=== PATIENT | male | born 1990 | race Caucasian/White ===

== ENCOUNTER 2019-08-04 09:28 | Emergency (ER) | payer OTHER ==
[2019-08-04] MEDS ORDERED: ONDANSETRON 4 MG/2 ML VIAL IVP STA (10:17)
[2019-08-04] MEDS ORDERED: SODIUM CHLORIDE 0.9% 1,000 ML IV ONE (10:20)
[2019-08-04] MEDS ORDERED: ACETAMINOPHEN TAB 500 MG TAB PO STA (10:23)
--- NOTE | 2019-08-04 10:23 | ED ---
General Adult HPI - General Chief complaint: Nausea/Vomiting/Diarrhea Stated complaint: vomiting/ear pain Time Seen by Provider: 08/04/19 09:50 Source: patient, RN notes reviewed, old records reviewed Mode of arrival: ambulatory Limitations: no limitations - History of Present Illness Initial comments: This is a 28-year-old male who presents emergency Department complaining of vomiting since Sunday. Patient states been unable to keep anything down. Patient states also had diarrhea over the same time frame. Patient also states she's developed a dry cough but no shortness of breath or difficulty breathing. Patient states she's also little low-grade fever. Patient complains of bilateral ear pain. Patient denies any sore throat. Patient is any facial tenderness. Patient denies any neck pain or stiffness. Patient denies any abdominal pain. Patient states he was diagnosed with influenza about a week ago. - Related Data Previous Rx's Medication Instructions Recorded Cyclobenzaprine [Flexeril] 10 mg PO TID PRN #15 tab 09/09/15 Ibuprofen [Motrin] 600 mg PO Q8HR PRN #30 tab 09/09/15 Amoxicillin 500 mg PO Q8H #30 capsule 08/04/19 Ondansetron [Zofran ODT] 4 mg PO Q8HR #10 tab 08/04/19 Allergies Allergy/AdvReac Type Severity Reaction Status Date / Time No Known Allergies Allergy Verified 09/09/15 08:01 Review of Systems ROS Statement: Those systems with pertinent positive or pertinent negative responses have been documented in the HPI. ROS Other: All systems not noted in ROS Statement are negative. Past Medical History Past Medical History: No Reported History History of Any Multi-Drug Resistant Organisms: None Reported Past Surgical History: Orthopedic Surgery Past Psychological History: No Psychological Hx Reported Smoking Status: Current some day smoker Past Alcohol Use History: Rare Past Drug Use History: Marijuana General Exam - General Exam Comments Initial Comments: GENERAL: Patient is well-developed and well-nourished. Patient is nontoxic and well- hydrated and is in mild distress. ENT: Neck is soft and supple. No significant lymphadenopathy is noted. Oropharynx is clear. Moist mucous membranes. Neck has full range of motion without eliciting any pain. Patient has a bulging left tympanic membrane. Membranes also very erythematous EYES: The sclera were anicteric and conjunctiva were pink and moist. Extraocular movements were intact and pupils were equal round and reactive to light. Eyelids were unremarkable. PULMONARY: Unlabored respirations. Good breath sounds bilaterally. No audible rales rhonchi or wheezing was noted. CARDIOVASCULAR: There is a regular rate and rhythm without any murmurs gallops or rubs. ABDOMEN: Soft and nontender with normal bowel sounds. SKIN: Skin is clear with no lesions or rashes and otherwise unremarkable. NEUROLOGIC: Patient is alert and oriented x3. Cranial nerves II through XII are grossly intact. Motor and sensory are also intact. Normal speech, volume and content. Symmetrical smile. MUSCULOSKELETAL: Normal extremities with adequate strength and full range of motion. No lower extremity swelling or edema. No calf tenderness. LYMPHATICS: No significant lymphadenopathy is noted PSYCHIATRIC: Normal psychiatric evaluation. Limitations: no limitations Course Vital Signs 08/04/19 09:51 Temperature 100.1 F H Pulse Rate 120 H Respiratory 19 Rate Blood Pressure 115/83 O2 Sat by Pulse 95 Oximetry Medical Decision Making - Medical Decision Making Chest x-ray shows no acute abnormality. - Lab Data Result diagrams: 08/04/19 10:17 08/04/19 10:17 Lab Results 08/04/19 08/04/19 Range/Units 10:17 10:17 WBC 10.5 (3.8-10.6) k/uL RBC 5.03 (4.30-5.90) m/uL Hgb 14.5 (13.0-17.5) gm/dL Hct 44.1 (39.0-53.0) % MCV 87.7 (80.0-100.0) fL MCH 28.9 (25.0-35.0) pg MCHC 32.9 (31.0-37.0) g/dL RDW 12.5 (11.5-15.5) % Plt Count 160 (150-450) k/uL Neutrophils % 79 % Lymphocytes % 11 % Monocytes % 6 % Eosinophils % 0 % Basophils % 2 % Neutrophils # 8.3 H (1.3-7.7) k/uL Lymphocytes # 1.2 (1.0-4.8) k/uL Monocytes # 0.6 (0-1.0) k/uL Eosinophils # 0.0 (0-0.7) k/uL Basophils # 0.2 (0-0.2) k/uL Sodium 140 (137-145) mmol/L Potassium 4.0 (3.5-5.1) mmol/L Chloride 105 (98-107) mmol/L Carbon Dioxide 26 (22-30) mmol/L Anion Gap 9 mmol/L BUN 10 (9-20) mg/dL Creatinine 1.04 (0.66-1.25) mg/dL Est GFR (CKD-EPI)AfAm >90 (>60 ml/min/1.73 sqM) Est GFR (CKD-EPI)NonAf >90 (>60 ml/min/1.73 sqM) Glucose 106 H (74-99) mg/dL Calcium 8.8 (8.4-10.2) mg/dL Total Bilirubin 0.7 (0.2-1.3) mg/dL AST 30 (17-59) U/L ALT 24 (4-49) U/L Alkaline Phosphatase 77 (38-126) U/L Total Protein 7.2 (6.3-8.2) g/dL Albumin 4.2 (3.5-5.0) g/dL Disposition Clinical Impression: Otitis media, Gastroenteritis Disposition: HOME SELF-CARE Instructions (If sedation given, give patient instructions): Gastroenteritis (ED), Ear Infection (ED) Prescriptions: Amoxicillin 500 mg PO Q8H #30 capsule Ondansetron [Zofran ODT] 4 mg PO Q8HR #10 tab Is patient prescribed a controlled substance at d/c from ED?: No Referrals: None,Stated [Primary Care Provider] - 1-2 days Time of Disposition: 11:15
[2019-08-04 10:37] LABS: Basophils # (A) 0.2 k/uL (0-0.2); Basophils % (A) 2 %; Eosinophils % (A) 0 %; HCT 44.1 % (39.0-53.0); HGB 14.5 gm/dL (13.0-17.5); Lymphocytes # (A) 1.2 k/uL (1.0-4.8); Lymphocytes % (A) 11 %; MCH 28.9 pg (25.0-35.0); MCHC 32.9 g/dL (31.0-37.0); MCV 87.7 fL (80.0-100.0); Mean Platelet Volume 7.5; Monocytes # (A) 0.6 k/uL (0-1.0); Monocytes % (A) 6 %; Neutrophils # (A) 8.3 k/uL (1.3-7.7); Neutrophils % (A) 79 %; Platelet Count 160 k/uL (150-450); RBC 5.03 m/uL (4.30-5.90); RDW 12.5 % (11.5-15.5); WBC 10.5 k/uL (3.8-10.6)
--- NOTE | 2019-08-04 10:39 | XR ---
EXAMINATION TYPE: XR chest 2V DATE OF EXAM: 08/04/2019 COMPARISON: NONE HISTORY: Chest pain TECHNIQUE: Frontal and lateral views of the chest are obtained. FINDINGS: There is no focal air space opacity. No evidence for pneumothorax. No pleural effusion. The cardiac silhouette size is within normal limits. The osseous structures are grossly intact. IMPRESSION: 1. No acute cardiopulmonary process.
[2019-08-04 10:59] LABS: ALT 24 U/L (4-49); AST 30 U/L (17-59); African American GFR (CKD) >90 (>60 ml/min/1.73 sqM); Albumin 4.2 g/dL (3.5-5.0); Alkaline Phosphatase 77 U/L (38-126); Anion Gap 9 mmol/L; Blood Urea Nitrogen 10 mg/dL (9-20); Calcium 8.8 mg/dL (8.4-10.2); Carbon Dioxide 26 mmol/L (22-30); Chloride 105 mmol/L (98-107); Glucose 106 mg/dL (74-99); Non-African American GFR(CKD) >90 (>60 ml/min/1.73 sqM); Sodium 140 mmol/L (137-145); Total Bilirubin 0.7 mg/dL (0.2-1.3); Total Protein 7.2 g/dL (6.3-8.2)
[2019-08-04 11:32] VITALS: BP 119/79; PULSE 98; RESP 18; TEMP 99.3
== END 2019-08-04 11:32 | disposition home or self-care (01) ==
LOC: EC 09:28
DX: K52.9 Noninfective gastroenteritis and colitis, unspecified (principal); H66.93 Otitis media, unspecified, bilateral; R05 Cough; F17.200 Nicotine dependence, unspecified, uncomplicated
CPT/HCPCS: 36415; 80053; 85025; 71046; 99284; 96374; 96361; J2405

== ENCOUNTER 2020-02-15 00:52 | Emergency (ER) | payer OTHER ==
[2020-02-15 01:08] VITALS: BP 125/79; PULSE 91; RESP 18; TEMP 99.1
[2020-02-15] MEDS ORDERED: ACET/COD 300 MG/30 MG STARTER PACK 6 TAB BTL PO STA (01:20)
[2020-02-15] MEDS ORDERED: KETOROLAC 15 MG/ML 1 ML VIAL IM STA (01:20)
--- NOTE | 2020-02-15 01:37 | XR ---
EXAMINATION TYPE: XR ankle complete LT DATE OF EXAM: 02/15/2020 COMPARISON: NONE HISTORY: Pain TECHNIQUE: 3 views FINDINGS: Ankle mortise is anatomic. I see no fracture nor dislocation. Joint spaces are normal. IMPRESSION: Negative left ankle exam.
--- NOTE | 2020-02-15 01:38 | XR ---
EXAMINATION TYPE: XR foot complete LT DATE OF EXAM: 02/15/2020 COMPARISON: NONE HISTORY: Pain TECHNIQUE: 3 views FINDINGS: Metatarsals appear intact. I see no fracture nor dislocation. Joint spaces are normal. Ther e are no erosions. Soft tissues appear normal. IMPRESSION: Negative left foot exam.
--- NOTE | 2020-02-15 01:42 | ED ---
Lower Extremity Injury HPI - General Chief Complaint: Extremity Injury, Lower Stated Complaint: Left ankle injury Time Seen by Provider: 02/15/20 01:09 Source: patient Mode of arrival: wheelchair Limitations: no limitations - History of Present Illness Initial Comments: 29-year-old male patient presents to the emergency department today for evaluation of left ankle and foot pain. Patient states that he was playing football earlier with his friends. Patient states he went home 4 hours later was resting when he stood back up he is having pain to the left ankle and foot. Patient denies any known injury. Denies fever or chills. Denies any redness around the joint. Patient has had for fracture on that side before. Denies any other injuries or concerns. Patient denies any headache, neck pain, back pain, chest pain, shortness of breath, dizziness, weakness, abdominal pain, nausea, vomiting, or difficulties with bowel movements or urination. - Related Data Previous Rx's Medication Instructions Recorded Cyclobenzaprine [Flexeril] 10 mg PO TID PRN #15 tab 09/09/15 Ibuprofen [Motrin] 600 mg PO Q8HR PRN #30 tab 09/09/15 Amoxicillin 500 mg PO Q8H #30 capsule 08/04/19 Ondansetron [Zofran ODT] 4 mg PO Q8HR #10 tab 08/04/19 Ibuprofen [Motrin] 600 mg PO Q8HR PRN #30 tab 02/15/20 Allergies Allergy/AdvReac Type Severity Reaction Status Date / Time chocolate flavor Allergy Rash/Hives Verified 02/15/20 01:08 Review of Systems ROS Statement: Those systems with pertinent positive or pertinent negative responses have been documented in the HPI. ROS Other: All systems not noted in ROS Statement are negative. Past Medical History Past Medical History: No Reported History History of Any Multi-Drug Resistant Organisms: None Reported Past Surgical History: Orthopedic Surgery Past Psychological History: No Psychological Hx Reported Smoking Status: Never smoker Past Alcohol Use History: Rare Past Drug Use History: Marijuana General Exam Limitations: no limitations General appearance: alert, in no apparent distress, other (This is a well- developed, well-nourished adult male patient in no acute distress. Vital signs upon presentation are temperature 99.1F, pulse 91, respirations 18, blood pressure 125/79, pulse ox 97% on room air.) Respiratory exam: Present: normal lung sounds bilaterally. Absent: respiratory distress, wheezes, rales, rhonchi, stridor Cardiovascular Exam: Present: regular rate, normal rhythm, normal heart sounds. Absent: systolic murmur, diastolic murmur, rubs, gallop, clicks Extremities exam: Present: full ROM, tenderness (Bilateral malleolar tenderness), normal capillary refill, other (There is soft tissue swelling surro unding the left ankle. Skin is otherwise pink, warm, dry. Cap refills less than 3 seconds. Pedal and posttibial pulses are 2+ and equal bilaterally.). Absent: pedal edema, joint swelling, calf tenderness Neurological exam: Present: alert, oriented X3, CN II-XII intact Psychiatric exam: Present: normal affect, normal mood Skin exam: Present: warm, dry, intact, normal color. Absent: rash Course Vital Signs 02/15/20 01:06 Temperature 99.1 F Pulse Rate 91 Respiratory 18 Rate Blood Pressure 125/79 O2 Sat by Pulse 97 Oximetry Medical Decision Making - Medical Decision Making 29-year-old male patient presents to the emergency department today for evaluation of left ankle and foot pain. Physical examination did reveal bilateral malleolar tenderness. There is mild swelling surrounding the left ank le. No erythema overlying the joint. He is afebrile. X-ray was negative. We will treat for ankle sprain with anti-inflammatory and ankle stirrup splint. Discharge follow up with his primary care physician for recheck in 1-2 days. He is instructed to have repeat x-rays performed in 7-10 days if pain symptoms persist. Return parameters were discussed in detail. He verbalizes understanding and agrees with this plan. - Radiology Data Radiology results: report reviewed, image reviewed 3 views of the left foot are obtained. Report reviewed in its entirety. Impression by Dr. Magallon shows negative left foot exam. 3 views of the left ankle are obtained. Report is reviewed in its entirety. Impression by Dr. Magallon shows negative left ankle exam Disposition Clinical Impression: Left ankle sprain Disposition: HOME SELF-CARE Condition: Good Instructions (If sedation given, give patient instructions): Ankle Sprain (ED) Additional Instructions: Rest, ice, elevate the ankle. Wear splint as needed for comfort and support. Follow up with your primary care physician for recheck in 1-2 days. Return to the emergency department immediately for any new, worsening, or concerning symptoms. Prescriptions: Ibuprofen [Motrin] 600 mg PO Q8HR PRN #30 tab PRN Reason: Pain Is patient prescribed a controlled substance at d/c from ED?: No Referrals: Giovany Michelle MD [STAFF PHYSICIAN] - 1-2 days Time of Disposition: 01:41
== END 2020-02-15 02:07 | disposition home or self-care (01) ==
LOC: EC 00:52
DX: S93.402A Sprain of unspecified ligament of left ankle, initial encounter (principal); Z91.018 Allergy to other foods; X50.9XXA Other and unspecified overexertion or strenuous movements or postures, initial encounter; Y93.61 Activity, american tackle football
CPT/HCPCS: 73610; 73630; 96372; 99283; 29515; L4350; J1885

== ENCOUNTER 2021-02-21 19:11 | Emergency (ER) | payer OTHER ==
[2021-02-21 20:00] VITALS: BP 123/80; PULSE 70; RESP 16; TEMP 98.1
--- NOTE | 2021-02-21 21:09 | US ---
EXAMINATION TYPE: US scrotum with doppler. Grayscale and color Doppler Duplex imaging performed of estefani snyder scrotum. DATE OF EXAM: 02/21/2021 COMPARISON: NONE CLINICAL HISTORY: TESTICULAR PAIN. Testicular pain and swelling. EXAM MEASUREMENTS: TESTICLES: Right Testicle: 4.0 x 2.5 x 2.1 cm Left Testicle: 3.4 x 2.4 x 2.2 cm EPIDIDYMIS HEAD: Right Epididymis: 1.1 x 1.6 x 1.5 cm Left Epididymis: 0.9 x 0.8 x 1.4 cm -Epididymis appears to be heterogeneous bilaterally. Doppler performed to assess for testicular vascularity; bilateral color flow and waveforms are seen. Presence of hydroceles: Anechoic area seen lateral to right testicle: 1.9 x 1.4 x 0.4 cm. Anechoic a steven seen lateral to left testicle: 2.2 x 1.6 x 1.2 cm. Presence of varicoceles: Vessels measure up to 0.23 cm on the right. IMPRESSION: No testicular torsion or mass. Small bilateral hydroceles.
[2021-02-21] MEDS ORDERED: KETOROLAC 15 MG/ML 1 ML VIAL IM STA (21:34)
[2021-02-21 22:22] LABS: Appearance,Urine Clear (Clear); Bilirubin,Urine Negative (Negative); Blood,Urine Negative (Negative); Color,Urine Yellow; Glucose,Urine (UA) Negative (Negative); Ketones,Urine Negative (Negative); Leukocyte Esterase,Urine Negative (Negative); Nitrite,Urine Negative (Negative); Protein,Urine Negative (Negative); Specific Gravity,Urine 1.019 (1.001-1.035); Urobilinogen,Urine <2.0 mg/dL (<2.0)
--- NOTE | 2021-02-21 22:55 | ED ---
General Adult HPI - General Chief complaint: Urogenital Stated complaint: Testicular Pain Time Seen by Provider: 02/21/21 21:09 Source: patient Mode of arrival: ambulatory Limitations: no limitations - History of Present Illness Initial comments: 30-year-old male presents to the emergency room for right testicular pain. Patient states this started today after he got out of the shower. States it is a dull ache. States it feels swollen. Patient denies any dysuria. Denies fevers or chills. Denies any concern for STDs. Denies any abdominal pain or flank pain. Patient has no other complaints at this time including shortness of breath, chest pain, abdominal pain, nausea or vomiting, headache, or visual changes. - Related Data Previous Rx's Medication Instructions Recorded Cyclobenzaprine [Flexeril] 10 mg PO TID PRN #15 tab 09/09/15 Ibuprofen [Motrin] 600 mg PO Q8HR PRN #30 tab 09/09/15 Amoxicillin 500 mg PO Q8H #30 capsule 08/04/19 Ondansetron [Zofran ODT] 4 mg PO Q8HR #10 tab 08/04/19 Ibuprofen [Motrin] 600 mg PO Q8HR PRN #30 tab 02/15/20 Allergies Allergy/AdvReac Type Severity Reaction Status Date / Time chocolate flavor Allergy Rash/Hives Verified 02/21/21 22:58 Review of Systems ROS Statement: Those systems with pertinent positive or pertinent negative responses have been documented in the HPI. ROS Other: All systems not noted in ROS Statement are negative. Past Medical History Past Medical History: No Reported History History of Any Multi-Drug Resistant Organisms: None Reported Past Surgical History: Orthopedic Surgery Past Psychological History: No Psychological Hx Reported Smoking Status: Never smoker Past Alcohol Use History: Rare Past Drug Use History: Marijuana General Exam Limitations: no limitations General appearance: alert, in no apparent distress Head exam: Present: atraumatic Eye exam: Present: normal appearance, PERRL, EOMI ENT exam: Present: normal exam, mucous membranes moist Neck exam: Present: normal inspection, full ROM. Absent: tenderness Respiratory exam: Present: normal lung sounds bilaterally. Absent: respiratory distress, wheezes Cardiovascular Exam: Present: regular rate, normal rhythm, normal heart sounds GI/Abdominal exam: Present: soft, normal bowel sounds. Absent: distended, tenderness, guarding, rebound, rigid exam: Present: testicular tenderness (R sided testicular tenderness), other (Roxanna [place] present for exam). Absent: scrotal swelling (No swelling or erythema noted of the scrotum) Course Vital Signs 02/21/21 19:58 Temperature 98.1 F Pulse Rate 70 Respiratory 16 Rate Blood Pressure 123/80 O2 Sat by Pulse 98 Oximetry Medical Decision Making - Medical Decision Making Urinalysis unremarkable. STD testing pending. Ultrasound shows no testicular torsion or mass. There are small bilateral hydroceles noted as well as varicoceles. Doppler flow bilaterally Patient's pain improved with Toradol. At this time patient can be discharged home to follow-up with urology. He will return here for any worsening symptoms. - Lab Data Lab Results 02/21/21 Range/Units 21:48 Urine Color Yellow Urine Appearance Clear (Clear) Urine pH 6.0 (5.0-8.0) Ur Specific [place] 1.019 (1.001-1.035) Urine Protein Negative (Negative) Urine Glucose (UA) Negative (Negative) Urine Ketones Negative (Negative) Urine Blood Negative (Negative) Urine Nitrite Negative (Negative) Urine Bilirubin Negative (Negative) Urine Urobilinogen <2.0 (<2.0) mg/dL Ur Leukocyte Esterase Negative (Negative) Disposition Clinical Impression: Hydrocele, Varicocele Disposition: HOME SELF-CARE Condition: Good Instructions (If sedation given, give patient instructions): Testicle Pain (ED) Additional Instructions: Please take Motrin and Tylenol for pain. Wear tight fitting underwear. Follow up with urology. Return for any worsening symptoms. Is patient prescribed a controlled substance at d/c from ED?: No Referrals: Yosvany Whipple MD [STAFF PHYSICIAN] - 1-2 days Time of Disposition: 22:54
== END 2021-02-21 23:01 | disposition home or self-care (01) ==
LOC: EC 19:11
DX: N43.3 Hydrocele, unspecified (principal); I86.1 Scrotal varices; F12.90 Cannabis use, unspecified, uncomplicated
CPT/HCPCS: 99284; 96372; 81003; 87491; 87591; 93975; 76870; J1885

== ENCOUNTER → 2022-04-20 | Outpatient (CLI) | payer OTHER ==
--- NOTE | 2022-04-20 11:55 | US ---
EXAMINATION TYPE: US carotid duplex BILAT DATE OF EXAM: 04/20/2022 COMPARISON: NONE CLINICAL HISTORY: R55 Syncope. Syncope. TECHNIQUE: Carotid duplex ultrasound examination. Indirect Doppler criteria was utilized. FINDINGS: EXAM MEASUREMENTS: RIGHT: Peak Systolic Velocity (PSV) cm/sec ----- Right CCA: 114.3 ----- Right ICA: 88.8 ----- Right ECA: 79.8 ICA/CCA ratio: 0.8 RIGHT: End Diastole cm/sec ----- Right CCA: 27.6 ----- Right ICA: 25.4 ----- Right ECA: 23.7 LEFT: Peak Systolic Velocity (PSV) cm/sec ----- Left CCA: 84.2 ----- Left ICA: 87.5 ----- Left ECA: 72.9 ICA/CCA ratio: 1.0 LEFT: End Diastole cm/sec ----- Left CCA: 22.6 ----- Left ICA: 47.4 ----- Left ECA: 14.5 VERTEBRALS (direction of flow): Right Vertebral: Antegrade Left Vertebral: Antegrade Rhythm: Normal [employer]OMBST[employer] ERECTOR NOTES: Elevated velocity within left prox CCA. Hypoechoic area with hyperechoic center seen within the left neck: 2.2 x 1.3 x 0.9 cm. Grayscale images show no significant focal plaque at carotid bulb level bilaterally. Velocity measure ments and ratios in visualized portion of both internal carotid arteries is within normal limits. Pro minent but probable benign lymph node in the left neck noted towards the end of study IMPRESSION: No hemodynamically significant stenosis identified in either internal carotid artery Criteria for Assigning % of Stenosis / Diameter reduction (Estimation based on the indirect measurements of the internal carotid artery velocities (ICA PSV). 1. Normal (no stenosis)=ICA PSV < 125 cm/s: ratio < 2.0: ICA EDV<40 cm/s. 2. Less than 50% stenosis=ICA PSV < 125 cm/s: ratio < 2.0: ICA EDV<40 cm/s. 3. 50 to 69% stenosis=ICA PSV of 125 to 230 cm/s: ration 2.0 ? 4.0: ICA EDV 40-100 cm/s. 4. Greater than 70% stenosis to near occlusion= ICA PSV > 230 cm/s: ratio > 4.0: ICA EDV > 100 cm/s. 5. Near occlusion= ICA PSV velocities may be low or undetectable: variable ratio and ICA EDV. 6. Total occlusion=unable to detect flow.
== END | disposition home or self-care (01) ==
LOC: RADUSWWP 11:08
PROVIDERS: ATTEND Family Medicine
DX: R55 Syncope and collapse (principal)
CPT/HCPCS: 93880

== ENCOUNTER → 2022-04-27 | Outpatient (CLI) | payer OTHER ==
--- NOTE | 2022-04-27 16:30 | MR ---
EXAMINATION TYPE: MR brain wo/w con DATE OF EXAM: 04/27/2022 COMPARISON: NONE HISTORY: Pt passed out and hit his head on a desk and then the floor TECHNIQUE: Multiplanar, multisequence images of the brain and brainstem is performed without and with IV contras t, utilizing 11ml mL intravenous Gadavist . FINDINGS: Diffusion weighted images demonstrate no evidence of a recent infarct or other diffusion ab normality. There is no extra-axial fluid collection or significant white matter signal abnormality. The ventricular system and cisternal spaces are normal in size and appearance. The brain volume is age appropriate. T2 Star weighted images show no suspicious intraparenchymal blood product. Midline structures demonstrate normal morphology. The craniocervical junction appears within normal limits. Post contrast images demonstrate no abnormal enhancement. The dural venous sinuses appear pa tent. Mild to moderate mucosal thickening inferior maxillary sinuses bilaterally with slightly more p rominence on the left and additional 1.5 cm mucous retention cyst or polyp inferiorly on the left axi al image 1. The globes are intact bilaterally. Patchy fluid signal in the bilateral mastoid air cells with extension towards the left petrous apex noted. IMPRESSION: Possible bilateral mastoiditis, correlate clinically. Chronic inferior ethmoid sinus dis ease. No abnormal enhancement.
== END | disposition home or self-care (01) ==
LOC: RADMRIMAIN 12:44
PROVIDERS: ATTEND Family Medicine
DX: R55 Syncope and collapse (principal)
CPT/HCPCS: 70553; A9585

== ENCOUNTER 2023-06-26 11:13 | Emergency (ER) | payer BC, OTHER ==
--- NOTE | 2023-06-26 12:07 | ED ---
ENT HPI - General Source: patient, RN notes reviewed <Alea Ewing - Last Filed: 06/26/23 12:04> - General Source: patient, RN notes reviewed Limitations: no limitations <Lai Islas - Last Filed: 06/26/23 13:09> - General Stated complaint: L Face Swollen, Dental Pain Time Seen by Provider: 06/26/23 12:04 - History of Present Illness Initial comments: Patient is a 32-year-old male presented ER with chief complaint of left-sided dental pain for 3 days.. Patient states he had work done about a month ago. He recently felt a pop and had been having pain ever since. Patient denies any fevers, chills, night sweats. (Alea Ewing) Patient is a pleasant 32-year-old male presenting to the emergency Department with left-sided dental pain. Onset of symptoms was about 3 days ago. Patient is been having intermittent discomfort. Discomfort mild at this time. No fevers. No drainage. Patient has noticed some swelling in the left lower maxillary region. (Lai Islas) - Related Data Previous Rx's Medication Instructions Recorded Acetaminophen [Tylenol] 500 mg PO Q4-6H PRN #20 tab 02/21/21 Ibuprofen [Motrin] 600 mg PO Q6HR PRN #20 tab 02/21/21 Penicillin V Potassium [Pen Vee K] 500 mg PO QID #40 tablet 06/26/23 Allergies Allergy/AdvReac Type Severity Reaction Status Date / Time chocolate flavor Allergy Rash/Hives Verified 06/26/23 12:28 Review of Systems ROS Other: All systems not noted in ROS Statement are negative. <Alea Ewing - Last Filed: 06/26/23 12:04> ROS Other: All systems not noted in ROS Statement are negative. Constitutional: Denies: fever Eyes: Denies: eye pain ENT: Reports: as per HPI, dental pain Respiratory: Denies: cough Cardiovascular: Denies: chest pain Gastrointestinal: Denies: abdominal pain <Lai Islas - Last Filed: 06/26/23 13:09> ROS Statement: Those systems with pertinent positive or pertinent negative responses have been documented in the HPI. Past Medical History Past Medical History: No Reported History History of Any Multi-Drug Resistant Organisms: None Reported Past Surgical History: Orthopedic Surgery Past Psychological History: No Psychological Hx Reported Smoking Status: Never smoker Past Alcohol Use History: Rare Past Drug Use History: Marijuana <Alea Ewing - Last Filed: 06/26/23 12:04> General Exam <Alea Ewing - Last Filed: 06/26/23 12:04> Limitations: no limitations General appearance: alert, in no apparent distress Head exam: Present: normocephalic Eye exam: Present: normal appearance, PERRL, EOMI ENT exam: Present: other (Patient does have some mild tenderness left maxillary dentition near the first premolar. No significant swelling or drainable visible abscess. Minimal left maxillary swelling externally.) Neck exam: Present: normal inspection Respiratory exam: Present: normal lung sounds bilaterally Cardiovascular Exam: Present: regular rate, normal rhythm GI/Abdominal exam: Present: soft. Absent: tenderness Extremities exam: Present: normal inspection Neurological exam: Present: alert Psychiatric exam: Present: normal affect, normal mood Skin exam: Present: normal color <Lai Islas - Last Filed: 06/26/23 13:09> - General Exam Comments Initial Comments: Visual Physical Exam Vital signs reviewed General: Well-appearing, nontoxic, no acute distress. Head: Normocephalic, atraumatic Eyes: PERRLA, EOMI ENT: Airway patent Chest: Nonlabored breathing Skin: No visual rash, normal skin tone Neuro: Alert and oriented 3 Musculoskeletal: No gross abnormalities (Alea Ewing) Course Vital Signs 06/26/23 12:24 Temperature 98.7 F Pulse Rate 61 Respiratory 18 Rate Blood Pressure 114/78 O2 Sat by Pulse 99 Oximetry Medical Decision Making <Alea Ewing - Last Filed: 06/26/23 12:04> <Lai Islas - Last Filed: 06/26/23 13:09> - Medical Decision Making I performed the quick note portion of the exam. Electronically signed by Alea Ewing PA-C (Alea Ewing) Was pt. sent in by a medical professional or institution ([facility] Love, TRAINING DEVELOPMENT SPECIALIST, urgent care, hospital, or long term...) When possible be specific @ -No Did you speak to anyone other than the patient for history (EMS, parent, family, police, friend...)? What history was obtained from this source @ -Family is present and helps for a history of dental work done just over a month ago. Did you review nursing and triage notes (agree or disagree)? Why? @ -I reviewed and agree with nursing and triage notes Were old charts reviewed (outside hosp., previous admission, EMS record, old EKG, old radiological studies, urgent care reports/EKG's, long term records)? Report findings @ -No old charts were reviewed Differential Diagnosis (chest pain, altered mental status, abdominal pain women, abdominal pain men, vaginal bleeding, weakness, fever, dyspnea, syncope, headache, dizziness, GI bleed, back pain, seizure, CVA, palpatations, mental health, musculoskeletal)? @ -not applicable EKG interpreted by me (3pts min.). @ -As above X-rays interpreted by me (1pt min.). @ -None done CT interpreted by me (1pt min.). @ -None done U/S interpreted by me (1pt. min.). @ -None done What testing was considered but not performed or refused? (CT, X-rays, U/S, labs)? Why? @ -None What meds were considered but not given or refused? Why? @ -None Did you discuss the management of the patient with other professionals (professionals i.e. , PA, TRAINING DEVELOPMENT SPECIALIST, lab, RT, psych nurse, manager social media, pet house sitter, teacher, youth officer, pillowcase cleaner)? Give summary @ -No Was smoking cessation discussed for >3mins.? @ -No Was critical care preformed (if so, how long)? @ -No Were there social determinants of health that impacted care today? How? (Homelessness, low income, unemployed, alcoholism, drug addiction, transportation, low edu. Level, literacy, decrease access to med. care, care home, rehab)? @ -No Was there de-escalation of care discussed even if they declined (Discuss DNR or withdrawal of care, Hospice)? DNR status @ -No What co-morbidities impacted this encounter? (DM, HTN, Smoking, COPD, CAD, Cancer, CVA, ARF, Chemo, Hep., AIDS, mental health diagnosis, sleep apnea, morbid obesity)? @ -None Was patient admitted / discharged? Hospital course, mention meds given and route, prescriptions, significant lab abnormalities, going to OR and other pertinent info. @ -Patient has symptoms consistent with dental infection, probable early abscess. Patient will be covered with antibiotics and recommended follow-up with dentist. Undiagnosed new problem with uncertain prognosis? @ -No Drug Therapy requiring intensive monitoring for toxicity (Heparin, Nitro, Insulin, Cardizem)? @ -No Were any procedures done? @ -No Diagnosis/symptom? @ -Dentalgia Acute, or Chronic, or Acute on Chronic? @ -Acute Uncomplicated (without systemic symptoms) or Complicated (systemic symptoms)? @ -default Side effects of treatment? @ -No Exacerbation, Progression, or Severe Exacerbation? @ -No Poses a threat to life or bodily function? How? (Chest pain, [place], [place], pneumonia, PE, COPD, DKA, ARF, appy, cholecystitis, CVA, Diverticulitis, Homicidal, Suicidal, threat to staff... and all critical care pts) @ -No (Lai Islas) Disposition <Alea Ewing - Last Filed: 06/26/23 12:04> Is patient prescribed a controlled substance at d/c from ED?: No Time of Disposition: 13:08 <Lai Islas - Last Filed: 06/26/23 13:09> Clinical Impression: Dentalgia Disposition: HOME SELF-CARE Condition: Stable Instructions (If sedation given, give patient instructions): Toothache (ED), Dental Abscess (ED) Additional Instructions: Prescription has been sent to pharmacy. Please do follow-up with dentist in the next day or 2 for recheck. Please also follow-up with primary care physician in the next 3 or 2 for recheck. Return for increased pain, swelling, difficulty breathing, not tolerating oral intake, worsening symptoms or other concerns. Prescriptions: Penicillin V Potassium [Pen Vee K] 500 mg PO QID #40 tablet Referrals: Yarely Zavala DO [Primary Care Provider] - 1-2 days
[2023-06-26 12:40] VITALS: RESP 18
[2023-06-26 13:50] VITALS: BP 119/72; PULSE 64; TEMP 98.2
== END 2023-06-26 13:40 | disposition home or self-care (01) ==
LOC: EC 11:13
DX: K08.89 Other specified disorders of teeth and supporting structures (principal); F12.90 Cannabis use, unspecified, uncomplicated; Z91.018 Allergy to other foods
CPT/HCPCS: 99282; 99283

== ENCOUNTER 2023-11-12 08:38 | Day surgery (SDC) | payer BC, OTHER ==
[2023-11-12] MEDS: SODIUM CHLORIDE 0.9% 500 ML IV ONE (08:12)
[~2023-11-12 08:38] MED LIST: SODIUM CHLORIDE 0.9% 1,000 ML IV SCH
[2023-11-12 09:29] VITALS: BP 114/72; PULSE 72; RESP 16
--- NOTE | 2023-11-12 14:09 | P.EPPROC ---
- EP Procedure Note Electrophysiology Procedure Note: Diagnosis Syncope Baseline twelve-lead EKG shows sinus mechanism normal [place] interval narrow QRS normal ST segments normal QT interval Baseline blood pressure 118/68 mmHg baseline heart rate 68 beats a minute Patient was tilted upright in angle of 70 degrees per protocol No change in heart rate or blood pressure he was laid supine the end of the procedure Impression normal twelve-lead EKG Normal heart rate blood pressure response to upright tilting
== END 2023-11-12 10:20 ==
LOC: CATHEP 08:38
PROVIDERS: ATTEND Internal Medicine Clinical Cardiac Electrophysiology
DX: R55 Syncope and collapse (principal); I10 Essential (primary) hypertension; F41.1 Generalized anxiety disorder; F31.75 Bipolar disorder, in partial remission, most recent episode depressed
CPT/HCPCS: 93660